=== PATIENT | male | born 1975 | race Caucasian/White ===

== ENCOUNTER 2019-07-21 11:48 | Outpatient (NON) | payer OTHER, SELFPAY ==
[2019-07-23 08:03] LABS: SARS-CoV-2 RNA PCR Positive
== END 2019-07-21 11:49 ==
PROVIDERS: PCP Internal Medicine; Visit Provider Nurse Practitioner
DX: R50.9 Fever, unspecified (principal); U07.1 COVID-19
CPT/HCPCS: 87635; C9803; U0003

== ENCOUNTER 2020-02-19 09:47 | Outpatient (CLI) | payer OTHER, SELFPAY ==
[2020-02-19 10:08] LABS: Basophils Absolute Auto 0.1 K/mm3 (0.0-0.1); Basophils Percent Auto 0.7 % (0.2-1.2); Eosinophils Absolute Auto 0.1 K/mm3 (0-0.3); Eosinophils Percent Auto 1.5 % (0-4.4); Hematocrit 47.1 % (42.0-52.0); Hemoglobin 15.7 g/dL (14.0-18.0); Immature Granulocyte Absolute 0.02 K/mm3 (0.00-0.031); Immature Granulocyte Percent A 0.3 % (0-0.5); Lymphocytes Absolute Auto 2.07 K/mm3 (0.9-3.2); Lymphocytes Percent Auto 28.3 % (18.3-44.2); Mean Corpuscular HGB Conc 33.3 g/dl (32-36); Mean Corpuscular Hemoglobin 30.7 pg (26-34); Mean Corpuscular Volume 92.2 fl (80-100); Mean Platelet Volume 10.2 fl (7.4-10.4); Monocytes Absolute Auto 0.5 K/mm3 (0.1-0.6); Monocytes Percent Auto 6.2 % (2.6-8.5); Neutrophils Absolute Auto 4.6 K/mm3 (1.3-6.7); Platelet Count Result 180 k/mm3 (150-375); Red Blood Count 5.11 M/mm3 (4.6-6.20); Red Cell Distribution Width 12.3 % (11.5-14.5); White Blood Count 7.3 K/mm3 (4.5-10.0)
[2020-02-19 10:28] LABS: Alanine Aminotransferase 21 U/L (4-50); Albumin Level 3.9 g/dL (3.5-5.1); Alkaline Phosphatase 29 U/L (38-126); Anion Gap 7 mmol/L (8-16); Aspartate Amino Transferase 21 U/L (17-59); Bilirubin,Total 0.4 mg/dL (0.2-1.3); Blood Urea Nitrogen 19 mg/dL (9-20); Calcium 8.9 mg/dL (8.4-10.2); Carbon Dioxide 27 mmol/L (22-30); Chloride 106 mmol/L (98-107); Cholesterol 151 mg/dL (0-200); Estimated Glomerular Filt Rate > 60; Glucose 92 mg/dL (75-110); HDL Direct 30 mg/dL; Potassium 4.2 mmol/L (3.4-5.0); Sodium 140 mmol/L (137-145); Triglycerides 110 mg/dL (<150)
[2020-02-19 10:40] LABS: LDL Cholesterol Direct 98 mg/dL
== END 2020-02-19 09:48 | disposition home or self-care (01) ==
PROVIDERS: PCP Internal Medicine; Visit Provider Clinical Nurse Specialist
DX: Z13.220 Encounter for screening for lipoid disorders (principal); Z13.228 Encounter for screening for other metabolic disorders; Z51.81 Encounter for therapeutic drug level monitoring; Z79.899 Other long term (current) drug therapy
CPT/HCPCS: 36415; 80053; 80061; 85025

== ENCOUNTER → 2020-02-29 08:12 | Outpatient (CLI) | payer OTHER, SELFPAY ==
--- NOTE | ~2020-02-29 | US_ITS ---
US abdomen complete DATE: 02/29/2020 09:10 INDICATION: Right upper quadrant and right lower quadrant abdominal pain TECHNIQUE: Real-time imaging and Doppler analysis of the abdomen COMPARISON: None FINDINGS: No hepatic or pancreatic space-occupying mass lesion is evident. Normal hepatopedal portal venous flow direction. No gallstones, gallbladder wall thickening or bile duct dilatation. No renal mass lesion or hydronephrosis. The spleen is within normal limits of size. Normal caliber of the abdominal aorta. The inferior vena cava is patent. IMPRESSION: No significant abnormality Reviewed, dictated and finalized at [facility]. Reviewed, dictated and finalized at [facility]. E MECHANIC IMPRESSION: No significant abnormality
== END ==
PROVIDERS: Visit Provider Clinical Nurse Specialist
DX: R10.9 Unspecified abdominal pain (principal)
CPT/HCPCS: 76700

== ENCOUNTER 2020-10-12 15:50 | Outpatient (CLI) | payer OTHER, SELFPAY ==
[2020-10-12 16:53] LABS: CRP 0.7 mg/dL (<1.0)
[2020-10-12 17:14] LABS: Erythrocyte Sedimentation Rate 8 mm/hr (0-20)
[2020-10-18 14:14] LABS: Tissue Transglutaminase IgG Ab 2 U/mL (<6)
[2020-10-18 21:22] LABS: Tissue Transglutaminase IgA Ab 3 U/mL (<4)
== END 2020-10-12 15:51 | disposition home or self-care (01) ==
LOC: ANHLAB 15:52
PROVIDERS: PCP Internal Medicine; Visit Provider Internal Medicine Gastroenterology
DX: R10.9 Unspecified abdominal pain (principal); R19.4 Change in bowel habit
CPT/HCPCS: 36415; 83516; 85652; 86140

== ENCOUNTER 2021-03-31 09:27 | Outpatient (CLI) | payer OTHER, SELFPAY ==
[2021-03-31 09:46] LABS: Basophils Percent Auto 0.6 % (0.2-1.2); Eosinophils Absolute Auto 0.1 K/mm3 (0-0.3); Eosinophils Percent Auto 1.6 % (0-4.4); Hematocrit 47.3 % (42.0-52.0); Hemoglobin 15.5 g/dL (14.0-18.0); Immature Granulocyte Absolute 0.03 K/mm3 (0.00-0.031); Immature Granulocyte Percent A 0.4 % (0-0.5); Lymphocytes Absolute Auto 2.11 K/mm3 (0.9-3.2); Lymphocytes Percent Auto 30.8 % (18.3-44.2); Mean Corpuscular HGB Conc 32.8 g/dl (32-36); Mean Corpuscular Volume 94.6 fl (80-100); Mean Platelet Volume 9.9 fl (7.4-10.4); Monocytes Absolute Auto 0.6 K/mm3 (0.1-0.6); Monocytes Percent Auto 9.2 % (2.6-8.5); Neutrophils Absolute Auto 3.9 K/mm3 (1.3-6.7); Neutrophils Percent Auto 57.4 % (45.5-73.1); Platelet Count Result 169 k/mm3 (150-375); Red Cell Distribution Width 12.3 % (11.5-14.5); White Blood Count 6.9 K/mm3 (4.5-10.0)
[2021-03-31 09:59] LABS: Alanine Aminotransferase 30 U/L (4-50); Albumin Level 4.2 g/dL (3.5-5.1); Alkaline Phosphatase 30 U/L (38-126); Anion Gap 6 mmol/L (8-16); Aspartate Amino Transferase 22 U/L (17-59); Bilirubin,Total 0.7 mg/dL (0.2-1.3); Blood Urea Nitrogen 15 mg/dL (9-20); Calcium 9.3 mg/dL (8.4-10.2); Carbon Dioxide 29 mmol/L (22-30); Chloride 103 mmol/L (98-107); Cholesterol 166 mg/dL (0-200); Estimated Glomerular Filt Rate > 60; Glucose 105 mg/dL (65-110); HDL Direct 34 mg/dL; Potassium 4.6 mmol/L (3.4-5.0); Sodium 138 mmol/L (137-145); Triglycerides 92 mg/dL (<150)
[2021-03-31 10:09] LABS: LDL Cholesterol Direct 113 mg/dL
== END 2021-03-31 09:28 | disposition home or self-care (01) ==
LOC: ANHLAB 09:34
PROVIDERS: PCP Internal Medicine; Visit Provider Nurse Practitioner
DX: Z13.220 Encounter for screening for lipoid disorders (principal); I10 Essential (primary) hypertension
CPT/HCPCS: 36415; 80053; 80061; 85025

== ENCOUNTER 2021-04-02 00:40 | Day surgery (SDC) | payer OTHER, SELFPAY ==
[2021-03-14 12:58] VITALS: BMI 41.8
--- NOTE | 2021-04-02 08:28 | WPDANESEPPF ---
Anes - Initial Pre Proc Eval Procedure: Operation Date: 04/02/21 10:30 Proposed Procedures p Screening Colonoscopy - Benji Weeks MD Date/Time: 04/02/21 08:28 Surgeon: Benji Weeks MD Pre Op Diagnosis: neoplasm screening Patient Data Age: 46 Gender: M Height: 1.8 m Weight: 136 kg Allergies Allergy/AdvReac Type Severity Reaction Status Date / Time No Known Allergies Allergy Verified 04/02/21 09:42 Home Medications Medication Instructions Recorded Confirmed Type losartan 50 mg tablet 50 mg PO DAILY #90 tablet 10/03/20 04/02/21 Rx Patient hx anesthesia problems: none Family hx anesthesia problems: none Results Review: All pre-operative results and documents have been reviewed as part of the pre-operative evaluation. [facility] Past Medical History Medical History (Updated 03/30/21 @ 12:17 by Silverio Salter DO) Colon cancer screening Essential (primary) hypertension Obesity, morbid, BMI 40.0-49.9 Family History Family History Mother Family history of obesity Asthma Family history of diabetes mellitus in first degree relative Father Patient's father is in good health Family history of cardiac disorder Sibling Patient's sister is in good health Patient's brother is in good health Grandparent Family history of lung cancer Other Family history of cardiovascular disease Social History Social History (Updated 10/12/20 @ 15:31 by Mary Blackwell CMA) Smoking status: Never smoker Alcohol intake: current Alcohol use details: seldom Substance use: never Living arrangements: with family Spiritual care concerns: No Anes - Eval Final PreProcedure Day of Procedure 04/02/21 08:28 Patient weight: morbidly obese Heart: regular rate and rhythm Lungs: clear to auscultation and normal air movement Airway: Mallampati scale class II Neurological: alert and oriented Last oral intake: >/= 8 hours ASA classification: III Emergent: no Anesthetic plan: proceed Anesthesia type and monitoring: general GIVS and standard monitoring Results Review: All pre-operative results and documents have been reviewed as part of the pre-operative evaluation. Informed Consent: The patient's anesthetic plan and its attendant risks and benefits were discussed with the patient/family/POA. Questions were solicited and answers provided to the satisfaction of the patient/family/POA.
--- NOTE | 2021-04-02 09:42 | PM.HPGS ---
History of Present Illness History of Present Illness Consent: Risks, benefits, and alternatives have been discussed and questions answered. Patient agrees to proceed with procedure. Chief complaint: neoplasm screening Narrative: Ross Khan is a 46 year old male here for first colonoscopy, had frequent stools with abdominal discomfort Review of Systems Constitutional: Constitutional: Denies headache(s) and Denies weakness Eyes: Eyes: Denies blurry vision ENT: Reports Normal hearing present, Denies headache(s) and Denies neck pain Cardiovascular: Cardiovascular: Denies chest pain and Denies dyspnea Respiratory: Respiratory: Denies dyspnea Gastrointestinal: Gastrointestinal: Reports no additional gastrointestinal complaints Genitourinary: Genitourinary: Denies dysuria Musculoskeletal: Musculoskeletal: Denies neck pain Integumentary/Breasts: Skin/Breast: Denies dry skin Neurologic: Reports Normal hearing present, Denies headache(s) and Denies weakness Psychiatric: Psychiatric: Denies anxiety Endocrine: Endocrine: Denies change in body appearance Hematologic/Lymphatic: Hematologic/Lymphatic: Denies easy bleeding Allergic/Immunologic: Allergic/Immunologic: Denies urticaria PMFSH Past Medical History Medical History (Updated 03/30/21 @ 12:17 by Silverio Satler DO) Colon cancer screening Essential (primary) hypertension Obesity, morbid, BMI 40.0-49.9 Family History Family History Mother Family history of obesity Asthma Family history of diabetes mellitus in first degree relative Father Patient's father is in good health Family history of cardiac disorder Sibling Patient's sister is in good health Patient's brother is in good health Grandparent Family history of lung cancer Other Family history of cardiovascular disease Social History Social History (Updated 10/12/20 @ 15:31 by Mary Blackwell CMA) Smoking status: Never smoker Alcohol intake: current Alcohol use details: seldom Substance use: never Living arrangements: with family Spiritual care concerns: No Meds Home Medications and Allergies Home Medications Medication Instructions Recorded Confirmed Type losartan 50 mg tablet 50 mg PO DAILY #90 tablet 10/03/20 04/02/21 Rx Allergies Allergy/AdvReac Type Severity Reaction Status Date / Time No Known Allergies Allergy Verified 04/02/21 09:42 Exam Const: General: comfortable and no acute distress HENMT: General nose exam: Normal nares present Eyes: General: appearance normal, both eyes and all related structures Neck: Neck: no JVD Resp: Auscultation: clear to auscultation bilaterally Cardio: Rate: regular rate Rhythm: regular rhythm GI: Inspection: non-distended GI Palp: Yes Soft to palpation Skin: General skin exam: normal color Neuro: General: gait normal Speech: normal speech Extrem: General: normal to inspection Psych: Mental Status: mental status grossly normal Assessment and Plan Assessment and plan (1) Colon cancer screening: Code(s): Z12.11 - Encounter for screening for malignant neoplasm of colon Status: Acute (2) Frequent bowel movements: Code(s): R19.4 - Change in bowel habit Status: Acute Assessment and Plan: colonoscopy, consider random colon bx
[2021-04-02 09:43] VITALS: BP 147/92; PULSE 90; RESP 18; TEMP 35.9; O2SAT 97; BMI 41.8
[2021-04-02] MEDS: LACTATED RINGERS 1,000 ML 150 ML IV CONT (09:55)
[2021-04-02 10:19] VITALS: BP 98/66; PULSE 80; RESP 12; O2SAT 96
[2021-04-02 10:29] VITALS: BP 127/78; PULSE 77; RESP 21; O2SAT 97
[2021-04-02 10:39] VITALS: BP 108/54; PULSE 76; RESP 27; O2SAT 98
== END 2021-04-02 10:49 | disposition home or self-care (01) ==
PROVIDERS: PCP Internal Medicine; Visit Provider Internal Medicine Gastroenterology
PROC: 0DJD8ZZ Inspection of Lower Intestinal Tract, Via Natural or Artificial Opening Endoscopic (ICD-10-PCS; CPT 45378; principal; 2021-04-02 10:30)
DX: Z12.11 Encounter for screening for malignant neoplasm of colon (principal); D12.3 Benign neoplasm of transverse colon; K63.5 Polyp of colon; R19.7 Diarrhea, unspecified; K57.30 Diverticulosis of large intestine without perforation or abscess without bleeding; K52.89 Other specified noninfective gastroenteritis and colitis; I10 Essential (primary) hypertension; E66.01 Morbid (severe) obesity due to excess calories; Z68.41 Body mass index [BMI] 40.0-44.9, adult
CPT/HCPCS: 45385; 45380; 88305; J2704; J7120

== ENCOUNTER 2022-06-15 08:17 | Outpatient (CLI) | payer OTHER, SELFPAY ==
[2022-06-15 08:38] LABS: Basophils Absolute Auto 0.1 K/mm3 (0.0-0.1); Basophils Percent Auto 0.9 % (0.2-1.2); Eosinophils Absolute Auto 0.2 K/mm3 (0-0.3); Eosinophils Percent Auto 3.2 % (0-4.4); Hematocrit 46.1 % (42.0-52.0); Hemoglobin 15.2 g/dL (14.0-18.0); Immature Granulocyte Absolute 0.02 K/mm3 (0.00-0.031); Immature Granulocyte Percent A 0.4 % (0-0.5); Lymphocytes Absolute Auto 1.57 K/mm3 (0.9-3.2); Lymphocytes Percent Auto 27.6 % (18.3-44.2); Mean Corpuscular Hemoglobin 31.6 pg (26-34); Mean Corpuscular Volume 95.8 fl (80-100); Mean Platelet Volume 9.8 fl (7.4-10.4); Monocytes Absolute Auto 0.5 K/mm3 (0.1-0.6); Monocytes Percent Auto 9.5 % (2.6-8.5); Neutrophils Absolute Auto 3.3 K/mm3 (1.3-6.7); Neutrophils Percent Auto 58.4 % (45.5-73.1); Platelet Count Result 149 k/mm3 (150-375); Red Blood Count 4.81 M/mm3 (4.6-6.20); Red Cell Distribution Width 12.8 % (11.5-14.5); White Blood Count 5.7 K/mm3 (4.5-10.0)
[2022-06-15 08:47] LABS: Alanine Aminotransferase 29 U/L (6-50); Albumin Level 3.5 g/dL (3.5-5.1); Alkaline Phosphatase 23 U/L (38-126); Anion Gap 2 mmol/L (8-16); Aspartate Amino Transferase 22 U/L (17-59); Bilirubin,Total 0.4 mg/dL (0.2-1.3); Blood Urea Nitrogen 14 mg/dL (9-20); Calcium 8.1 mg/dL (8.4-10.2); Carbon Dioxide 30 mmol/L (22-30); Chloride 106 mmol/L (98-107); Cholesterol 121 mg/dL (0-200); Estimated Glomerular Filt Rate > 60; Glucose 99 mg/dL (65-110); HDL Direct 29 mg/dL; Potassium 4.2 mmol/L (3.4-5.0); Sodium 138 mmol/L (137-145); Triglycerides 81 mg/dL (<150)
[2022-06-15 08:58] LABS: LDL Cholesterol Direct 73 mg/dL
== END 2022-06-15 08:18 | disposition home or self-care (01) ==
LOC: ANHLAB 08:18
PROVIDERS: PCP Internal Medicine; Visit Provider Nurse Practitioner
DX: Z13.29 Encounter for screening for other suspected endocrine disorder (principal); Z13.220 Encounter for screening for lipoid disorders
CPT/HCPCS: 36415; 80053; 80061; 85025

== ENCOUNTER 2023-10-17 08:26 | Outpatient (CLI) | payer OTHER, SELFPAY ==
[2023-10-17 09:07] LABS: Basophils Percent Auto 0.6 % (0.2-1.2); Eosinophils Absolute Auto 0.1 K/mm3 (0-0.3); Eosinophils Percent Auto 1.8 % (0-4.4); Hematocrit 47.2 % (42.0-52.0); Hemoglobin 15.9 g/dL (14.0-18.0); Immature Granulocyte Absolute 0.02 K/mm3 (0.00-0.031); Immature Granulocyte Percent A 0.3 % (0-0.5); Lymphocytes Absolute Auto 1.72 K/mm3 (0.9-3.2); Mean Corpuscular HGB Conc 33.7 g/dl (32-36); Mean Corpuscular Hemoglobin 31.8 pg (26-34); Mean Corpuscular Volume 94.4 fl (80-100); Mean Platelet Volume 10.3 fl (7.4-10.4); Monocytes Absolute Auto 0.5 K/mm3 (0.1-0.6); Monocytes Percent Auto 7.7 % (2.6-8.5); Neutrophils Absolute Auto 4.2 K/mm3 (1.3-6.7); Neutrophils Percent Auto 63.6 % (45.5-73.1); Platelet Count Result 180 k/mm3 (150-375); Red Cell Distribution Width 12.6 % (11.5-14.5); White Blood Count 6.6 K/mm3 (4.5-10.0)
[2023-10-17 09:13] LABS: Alanine Aminotransferase 30 U/L (6-50); Albumin Level 4.4 g/dL (3.5-5.1); Alkaline Phosphatase 29 U/L (38-126); Anion Gap 9 mmol/L (4-12); Aspartate Amino Transferase 21 U/L (17-59); Bilirubin,Total 0.6 mg/dL (0.2-1.3); Blood Urea Nitrogen 19 mg/dL (9-20); Carbon Dioxide 26 mmol/L (22-30); Chloride 103 mmol/L (98-107); Cholesterol 151 mg/dL (0-200); Estimated Glomerular Filt Rate > 60; Glucose 93 mg/dL (65-110); HDL Direct 32 mg/dL; Potassium 4.2 mmol/L (3.4-5.0); Sodium 138 mmol/L (137-145); Triglycerides 115 mg/dL (<150)
[2023-10-17 09:24] LABS: LDL Cholesterol Direct 93 mg/dL
[2023-10-17 09:43] LABS: Prostate Specific Antigen 0.7 ng/mL (< OR = 4.0)
== END 2023-10-17 08:27 | disposition home or self-care (01) ==
LOC: ANHLAB 08:27
PROVIDERS: PCP Internal Medicine; Visit Provider Nurse Practitioner
DX: Z12.5 Encounter for screening for malignant neoplasm of prostate (principal); Z13.220 Encounter for screening for lipoid disorders; Z13.29 Encounter for screening for other suspected endocrine disorder
CPT/HCPCS: 36415; 80053; 80061; 84153; 85025; G0103

== ENCOUNTER 2024-07-22 14:42 | Outpatient (CLI) | payer OTHER, SELFPAY ==
[2024-07-22 18:14] LABS: Alanine Aminotransferase 23 U/L (6-50); Aspartate Amino Transferase 30 U/L (17-59)
== END 2024-07-22 14:43 | disposition home or self-care (01) ==
LOC: ANHLAB 14:44
PROVIDERS: PCP Internal Medicine; Visit Provider Podiatrist Foot & Ankle Surgery
DX: B35.1 Tinea unguium (principal)
CPT/HCPCS: 36415; 84450; 84460

== ENCOUNTER 2024-08-13 01:10 | Day surgery (SDC) | payer OTHER, SELFPAY ==
[2024-08-05 11:13] VITALS: BMI 43.9
--- OUTSIDE RECORDS SUMMARY | 2024-08-13 01:13 | XMS_ITS | Continuity of Care Document ---
Author Organization [facility] Address [address] [place] [address] Phone Care Team Providers Care Lab Technologist Name Role Phone Mode Pack MD Unavailable Unavailable Allergies, Adverse Reactions, Alerts Substance Reaction Status Criticality No Known Allergies Active No Inform ation Medications Medication Instructions Dosage Effective Dates (start - stop) Status Comments epinephrine 0.3 mg/0.3 mL injection, auto-injector inject 0.3 milliliter by intramuscular route once as needed for anaphylaxis 0.3 MG - Active will with 2-kishor fexofenadine 180 mg tablet take 2 tablet by oral route every morning 360 MG - Active diphenhydramine 25 mg tablet take 1 - 2 Tablet by oral route every 4 - 6 hours as needed as needed 25 MG - Active losartan 50 mg tablet take 1 tablet by oral route every day 50 MG - Active prednisone 10 mg tablet take 4 tablet (10MG) by oral route every day - No Longer Active cetirizine 10 mg tablet take 2 tablet by oral route every evening 20 MG - No Longer Active Advance Directives Directive Yes / No Effective Date File Name No Information Encounters Encounter Description Practice Location Reason(s) For Visit Diagnoses Date Provider Providers Copied on Encounter [facility], [address], [place], [place], [id number], [place] tel:[phone] [facility] No Information Ramone Coello. [address], [id number], [place]. tel:[phone] [facility], [address], [place], [place], [address], tel:[phone] [facility] No Information Ramone Coello. [address], [id number], . tel:[phone] [facility], [address], [place], [place], [address], tel:[phone] [facility] No Information Ramone Coello. [address], [id number], . tel:[phone] [facility], [address], [place], [place], [address], tel:[phone] [facility] Angioedema, initial encounter Ramone Coello. [address], [id number], . tel:[phone] Referring Provider: Dagoberto Cuellar, [facility] [address], [place], [address]. tel:[phone] Family History Family Member Type Diagnosis Age At Onset Problem (finding) No family hist ory of Hereditary angioedema Problem (finding) No family history of Hi ves Payers Payer name Insurance type Covered libertarian ID Authormaynora tilizette(s) [facility] CI [id number] Social History Type Description Quantity Date Captured Comments Alcohol Use Details Unknown Caffeine Use Details Unknown Tobacco Use Status No Information Smoking Status No Information Sex Male Chief Complaint And Reason For Visit No Information Reason For Referral Reason For Referral No Information History Of Present Illness Encounter Date Complaint History Of Prese nt Illness No Information Functional Status Date Functional Assessmen t No Information Instructions Date Instruction Additional Infor mation No Information Assessments Type Assessment Date No Information Patient Care Teams Name Effective Dates (start - stop) Status Members No Information
--- OUTSIDE RECORDS SUMMARY | 2024-08-13 01:13 | XMS_ITS | Continuity of Care Document ---
Author Organization [facility] Address [address] [facility] [address] [place] [address] Phone Care Team Providers Care Dye Stand Loader Name Role Phone Richard Jackson Unavailable Unavailable Procedures Procedure Date PT RE-EVALUATION THERAPEUTIC EXERCISES NEUROMUSCULAR RE-ED FUNC ACTIVITY HOT/COLD PACK ELECTRIC STIMULATION UNATT THERAPEUTIC EXERCISES NEUROMUSCULAR RE-ED MANUAL THERAPY FUNC ACTIVITY HOT/COLD PACK ELECTRIC STIMULATION UNATT PT EVALUATION THERAPEUTIC EXERCISES NEUROMUSCULAR RE-ED MANUAL THERAPY FUNC ACTIVITY HOT/COLD PACK ELECTRIC STIMULATION UNATT Advance Directives Directive Yes / No Effective Date File Name No Information Encounters Encounter Description Practice Location Reason(s) For Visit Diagnoses Date Provider Providers Copied on Encounter [facility], [id number], tel:[phone] [place] No Information Jan-0 5 Apple Jackson [address] [facility], [facility] [address], [place], [place], [facility], [place]. tel: [phone] [facility], [address] [address], [place], [place], [id number], tel:[phone] [place] No Information Nov-0 5 Apple Ramos. [address] [facility], [address], [place], [address], [place]. tel: [phone] [facility], [address] [facility] [address], [place], [place], [id number], [place] tel:[phone] [place] Pain in left kneeMuscle wasting and atrophy, NEC, left thighSprain of medial collateral ligament of left knee, subs Nov-0 201 5 Apple Ramos. [address] [facility], [address], [place], [address], [place]. tel: [phone] Family History Family Member Type Diagnosis Age At Onset No Information Payers Payer name Insurance type Covered constitution party ID Authormaynora christy(s) [employer] SP [id number] Social History Type Description Quantity Date Captured Comments Sex Male Smoking Status No Information Chief Complaint And Reason For Visit No [...]
--- OUTSIDE RECORDS SUMMARY | 2024-08-13 01:13 | XMS_ITS | Continuity of Care Document ---
Author Organization [facility] Address [address] [place] [address] Phone Care Team Providers Care Produce Assistant Name Role Phone Judd Ramirez MD Unavailable Unavailable Allergies, Adverse Reactions, Alerts Substance Reaction Status Criticality No Known Allergies Active No Inform ation Medications Medication Instructions Dosage Effective Dates (start - stop) Status Comments meloxicam 15 mg tablet TAKE 1 TABLET(15 MG) BY MOUTH EVERY DAY WITH FOOD - Active Tylenol-Codeine #3 300 mg-30 mg tablet take 1-2 tablets by oral route every 8 hours as needed for pain - Active glucosamine-chondr oitin 167 mg-133 mg capsule - Active LISINOPRIL (unknown strength) Not Available - Active Procedures Procedure Date RADEX KNE COMPL 4/MORE VIEWS OFFICE/OUTPATIENT VISIT EST RADEX KNE COMPL 4/MORE VIEWS OFFICE/OUTPATIENT VISIT EST OFFICE/OUTPATIENT VISIT EST RADEX KNE COMPL 4/MORE VIEWS OFFICE/OUTPATIENT VISIT EST OFFICE/OUTPATIENT VISIT EST OFFICE/OUTPATIENT VISIT EST OFFICE/OUTPATIENT VISIT EST MRI ANY JT LXTR C-MATRL OFFICE CONSULTATION RADEX KNE COMPL 4/MORE VIEWS RADEX KNE COMPL 4/MORE VIEWS OFFICE/OUTPATIENT VISIT EST RADEX KNE COMPL 4/MORE VIEWS POSTOP FOLLOW-UP VISIT POSTOP FOLLOW-UP VISIT POSTOP FOLLOW-UP VISIT OFFICE/OUTPATIENT VISIT EST OFFICE/OUTPATIENT VISIT EST JANICE LEON COMPL 4/MORE VIEWS OFFICE/OUTPATIENT VISIT NEW Advance Directives Directive Yes / No Effective Date File Name No Information Encounters Encounter Description Practice Location Reason(s) For Visit Diagnoses Date Provider Providers Copied on Encounter OFFICE/OUTPAT IENT VISIT EST [facility], [address], [address], tel:[phone] [facility] Post-traumati c osteoarthriti s of left knee 3-201 8 Dusek Judd. [address] [place], [place], [address]. tel:[phone] [facility], [address], [address], tel:[phone] [facility] No Information 0 8 Dusek Judd. [address] [place], [place], [address]. tel:[phone] OFFICE/OUTPAT IENT VISIT EST [facility], [address], [address], [place] tel:[phone] [facility] Body mass index (BMI) 39.0-39.9, adultPost-tra umatic osteoarthriti s of left knee Oct- 3201 7 Dusek Judd. [address] [place], [place], [address]. tel:[phone] OFFICE/OUTPAT IENT VISIT EST [facility], [address], [address], [place] tel:[phone] [facility] Post-traumati c osteoarthriti s of left kneeBody mass index (BMI) 39.0-39.9, adult Jun-2 0-201 7 Dusek Judd. [address] [place], [place], [address]. tel:[phone] OFFICE/OUTPAT IENT VISIT EST [facility], [address], [address], [place] tel:[phone] [facility] Post-traumati c osteoarthriti s of left knee 7 Dusek Judd. [address] [facility] [address] , [place], [place], [id number]. tel:[phone] OFFICE/OUTPAT IENT VISIT EST [facility], [address] [address], [place], [address], [place] tel:[phone] [facility] Post-traumati c osteoarthriti s of left knee 6 Dusek Judd. [address] [facility], [place], [place], [address]. tel:[phone] OFFICE/OUTPAT IENT VISIT EST [facility], [address], [address], [place] tel:[phone] [facility] Post-traumati c osteoarthriti s of left knee 6 Dusek Judd. [address] [facility], [place], [place], [id number]. tel:[phone] OFFICE/OUTPAT IENT VISIT EST [facility], [address] [address], [place], [address], [place] tel:[phone] [facility] Tear of medial meniscus of right knee, initial encounter 6 James Judd. [address] [facility] , [place], [place], [id number]. tel:[phone] [facility], [address], [address], [place] tel:[phone] [facility] No Information Nov-2 0- 6 No Information Referring Provider: Judd Ramirez, [address] [facility] [address] , [place], [address]. tel:[phone] OFFICE CONSULTATION [facility], [address], [address], [place] tel:[phone] [facility] Right knee pain (chief complaint) Right knee pain Sep-1 9-201 6 Moralez Pari. [address] [facility] [address], [place], [place], [id number]. tel:[phone] Referring Provider: Dagoberto Becerril, [address] [facility] [address], [place], [address]. tel:[phone] [facility], [address] [address], [place], [address], [place] tel:[phone] [facility] Post-traumati c osteoarthriti s of left knee Sep-1 4-201 6 Dusek Judd. [address] [facility], [place], [place], [address]. tel:[phone] [facility], [address] [address], [place], [address], [place] tel:[phone] [facility] Post-traumati c osteoarthriti s of left kneePain in left knee Sep-0 6-201 6 Dusek Judd. [address] [facility], [place], [place], [address]. tel:[phone] OFFICE/OUTPAT IENT VISIT EST [facility], [address] [address], [place], [address], [place] tel:[phone] [facility] Pain in left kneePost-trau matic osteoarthriti s of left knee Aug-3 0-201 6 Dusek Judd. [address] [facility], [place], [place], [address]. tel:[phone] Referring Provider: Dagoberto Becerril, [address] [facility], [place], [address]. tel:[phone] [facility], [address] [address], [place], [address], [place] tel:[phone] [facility] Medial meniscus tear, left, subsequent encounterPrim opal osteoarthriti s of left knee May-0 9-201 6 Dusek Judd. [address] [place], [place], [address]. tel:[phone] [facility], [address] [facility], [place], [address], [place] tel:[phone] [facility] Medial meniscus tear, left, subsequent encounter 6 Dusek Judd. [address], [place], [place], [address]. tel:[phone] [facility], [address] [address], [place], [address], [place] tel:[phone] [facility] Medial meniscus tear, left, subsequent encounter 6 Dusek Judd. [address], [place], [place], [address]. tel:[phone] [facility], [address] [address], [place], [address], [place] tel:[phone] [facility] Medial meniscus tear, left, subsequent encounter 6 Kirt Yañez. [address] [address], [place], [place], [address]. tel:[phone] OFFICE/OUTPAT IENT VISIT EST [facility], [address] [address], [place], [address], [place] tel:[phone] [facility] Sprain of medial collateral ligament of left knee, subsequent encounter 0 - 5 Dusek Judd. [address] [address] , [place], [place], [address]. [phone] OFFICE/OUTPAT IENT VISIT EST [facility], [address] [address], [place], [address], [place] tel:[phone] [facility] Sprain of medial collateral ligament of left knee, subsequent encounter 3 0-201 5 Dusek Judd. [address] , [place], [place], [address]. tel:[phone] [facility], [address] [address], [place], [address], [place] tel:[phone] [facility] Sprain of medial collateral ligament of left knee, subsequent encounter 2201 5 Dusek Judd. [address] , [place], [place], [address]. tel:[phone] OFFICE/OUTPAT IENT VISIT NEW [facility], [address], [place], [address], [place] tel:[phone] [facility] Pain in joint involving lower leg Nov- 5-201 5 Dusek Judd. [address], [place], [place], [address]. tel:[phone] Family History Family Member Type Diagnosis Age At Onset Father Problem (finding) Heart disease Mother Problem (finding) Heart disease Payers Payer name Insurance type Covered democrat ID Authoriza tion(s) [facility] Choice/Choice Plus [id number] [id number] Social History Type Description Quantity Date Captured Comments Alcohol Use Details Unknown Caffeine Use Details Unknown Tobacco Use Status No Information Smoking Status No Information Sex Male Chief Complaint And Reason For Visit No Information Reason For Referral Reason For Referral No Information Plan Of Treatment Date Type Action Status Referral Ordered: MRI ANY JT LXTR C-MATRL RT knee Appointment date/timeframe: 12/12/2015 ordered Referral Ordered: RADEX KNE COMPL 4/MORE VIEWS RT ordered Referral Ordered: RADEX KNE COMPL 4/MORE VIEWS LT knee ordered Referral Ordered: INJECTION LT knee ordered Referral Ordered: RADEX KNE COMPL 4/MORE VIEWS LT ordered Referral Ordered: MRI ANY JT LXTR C-MATRL LT knee ordered Future Order: Lab Order BMP ([id number]), O rdered on: Ordered History Of Present Illness Encounter Date Complaint History Of Prese nt Illness Right knee pain Functional Status Date Functional Assessmen t No Information Instructions Date Instruction Additional Infor mation Take medication/NSAID as directe d. Related to Post-traumatic osteoarthritis of left knee Weight loss reduces stress on joints. Related to Post-traumatic osteoarthritis of left knee Take medication/NSAID as directe d. Related to Post-traumatic osteoarthritis of left knee Weight loss reduces stress on joints. Related to Post-traumatic osteoarthritis of left knee Weight loss reduces stress on joints. Related to Post-traumatic osteoarthritis of left knee Take medication/NSAID as directe d. Related to Post-traumatic osteoarthritis of left knee Giving encouragement to exercise Related to Body mass index (BMI) 39.0-39.9, adult Benefits of Glucosamine/Chondroi tin Related to Post-traumatic osteoarthritis of left knee Take medication/NSAID as directe d. Related to Post-traumatic osteoarthritis of left knee Take medication/NSAID as directe d. Related to Post-traumatic osteoarthritis of left knee Discussed treatment options Rela luiz to Tear of medial meniscus of right knee, initial encounter Call for increase in pain Relate d to Tear of medial meniscus of right knee, initial encounter Discussed surgical options Relat ed to Post-traumatic osteoarthritis of left knee Benefits of Glucosamine/Chondroi tin Related to Post-traumatic osteoarthritis of left knee Weight loss reduces stress on joints. Related to Post-traumatic osteoarthritis of left knee Call for increase in pain Relate d to Right knee pain Discussed treatment options Rela luiz to Right knee pain Discussed treatment options Rela luiz to Sprain of medial collateral ligament of left knee, subsequent encounter Assessments Type Assessment Date assessment Post-traumatic osteoarthritis of left knee Patient Care Teams Name Effective Dates (start - stop) Status Members No Information
[2024-08-13 06:44] VITALS: BP 142/98; PULSE 77; RESP 16; TEMP 36.5; O2SAT 97
[2024-08-13] MEDS: LACTATED RINGERS 1,000 ML 150 ML IV CONT (06:53)
--- NOTE | 2024-08-13 07:42 | P.PNAN_ITS ---
Anes - Initial Pre Proc Eval Procedure: Operation Date: 08/13/24 08:00 Proposed Procedures p Screening Colonoscopy - Benji Weeks MD Date/Time: 08/13/24 07:42 Surgeon: Benji Weeks MD Pre Op Diagnosis: Hx of polyps Patient Data Age: 49 Gender: M Height: 1.8 m Weight: 138.4 kg Last Vital Signs Temp 36.5 C 08/13/24 06:44 Pulse 77 08/13/24 06:44 Resp 16 08/13/24 06:44 BP 142/98 H 08/13/24 06:44 Pulse Ox 97 08/13/24 06:44 O2 Del Method Room Air 08/13/24 06:44 Allergies Allergy/AdvReac Type Severity Reaction Status Date / Time No Known Allergies Allergy Verified 08/13/24 06:42 Home Medications ?Medication ?Instructions ?Recorded ?Confirmed ?Type losartan 50 mg tablet 50 mg PO DAILY #90 tabs 08/01/23 08/13/24 Rx terbinafine HCl 250 mg tablet 250 mg PO DAILY 08/05/24 08/13/24 History Patient hx anesthesia problems: none Family hx anesthesia problems: none Results Review: All pre-operative results and documents have been reviewed as part of the pre- operative evaluation. [facility] Past Medical History Medical History Colon cancer screening Obesity, morbid, BMI 40.0-49.9 Essential (primary) hypertension Family History Family History Mother Family history of obesity Asthma Family history of diabetes mellitus in first degree relative Father Patient's father is in good health Family history of cardiac disorder Sibling Patient's sister is in good health Patient's brother is in good health Grandparent Family history of lung cancer Other Family history of cardiovascular disease Social History Social History Social History: caffeine-daily Smoking status: Never smoker Alcohol intake: current Drinks per week: 5 Alcohol use details: seldom Substance use: never Substance use type: does not use Lack of Transportation: No Lack of Food: Never True Current Housing: I Have Housing Concerned About Future Housing: No Difficulty Paying Gas/Electric Bills: No Difficulty Paying for Meds: No Currently Unemployed: No Education: Trade/Vocational Certificate Difficulty w/ Childcare or Family Care: No Living arrangements: with family Spiritual care concerns: No Anes - Eval Final PreProcedure Day of Procedure 08/13/24 07:42 Patient weight: morbidly obese Heart: regular rate and rhythm Lungs: clear to auscultation Airway: Mallampati scale class III Neurological: alert and oriented Last oral intake: >/= 8 hours ASA classification: III Emergent: no Anesthetic plan: proceed Anesthesia type and monitoring: general GIVS and standard monitoring Results Review: All pre-operative results and documents have been reviewed as part of the pre- operative evaluation. Informed Consent: The patient's anesthetic plan and its attendant risks and benefits were discussed with the patient/family/POA. Questions were solicited and answers provided to the satisfaction of the patient/family/POA.
--- NOTE | 2024-08-13 07:43 | PM.HPGS ---
History of Present Illness History of Present Illness Consent: Risks, benefits, and alternatives have been discussed and questions answered. Patient agrees to proceed with procedure. Chief complaint: Hx of polyps Narrative: Ross Khan is a 49 year old male with colon polyp in 2021 Review of Systems Review of Systems: All systems reviewed & are unremarkable except as noted in HPI and below PMFSH Past Medical History Medical History (Updated 08/13/24 @ 07:44 by Benji Weeks MD) Colon polyp Colon cancer screening Obesity, morbid, BMI 40.0-49.9 Essential (primary) hypertension Family History Family History Mother Family history of obesity Asthma Family history of diabetes mellitus in first degree relative Father Patient's father is in good health Family history of cardiac disorder Sibling Patient's sister is in good health Patient's brother is in good health Grandparent Family history of lung cancer Other Family history of cardiovascular disease Social History Social History Social History: caffeine-daily Smoking status: Never smoker Alcohol intake: current Drinks per week: 5 Alcohol use details: seldom Substance use: never Substance use type: does not use Lack of Transportation: No Lack of Food: Never True Current Housing: I Have Housing Concerned About Future Housing: No Difficulty Paying Gas/Electric Bills: No Difficulty Paying for Meds: No Currently Unemployed: No Education: Trade/Vocational Certificate Difficulty w/ Childcare or Family Care: No Living arrangements: with family Spiritual care concerns: No Meds Home Medications and Allergies Home Medications ?Medication ?Instructions ?Recorded ?Confirmed ?Type losartan 50 mg tablet 50 mg PO DAILY #90 tabs 08/01/23 08/13/24 Rx terbinafine HCl 250 mg tablet 250 mg PO DAILY 08/05/24 08/13/24 History Allergies Allergy/AdvReac Type Severity Reaction Status Date / Time No Known Allergies Allergy Verified 08/13/24 06:42 Vital Signs Vital Signs - 24 hr 08/13/24 06:44 Temperature 97.7 F Pulse Rate 77 Respiratory Rate 16 Blood Pressure 142/98 H Pulse Oximetry 97 Oxygen Delivery Room Air Exam Const: General: comfortable and no acute distress HENMT: Face/Nose/Sinus: Normal nares present Eyes: General: appearance normal, both eyes and all related structures Neck: Neck: no JVD Resp: Auscultation: clear to auscultation bilaterally Cardio: Rate: regular rate Rhythm: regular rhythm GI: Inspection: non-distended GI Palp: Yes Soft to palpation Skin: General skin exam: normal color Neuro: General: gait normal Speech: normal speech Extrem: General: normal to inspection Psych: Mental Status: mental status grossly normal Assessment and Plan Assessment and plan (1) Colon polyp: Code(s): K63.5 - Polyp of colon Status: Acute Assessment and Plan: colonoscopy
--- NOTE | 2024-08-13 07:48 | P.PNAN_ITS ---
Anes - Eval Final PreProcedure Day of Procedure 08/13/24 07:48 Patient weight: morbidly obese Heart: regular rate and rhythm Lungs: clear to auscultation Airway: Mallampati scale class II Neurological: alert and oriented Last oral intake: >/= 8 hours ASA classification: III Emergent: no Anesthetic plan: proceed Anesthesia type and monitoring: general GIVS and standard monitoring Other findings: exam per BK Results Review: All pre-operative results and documents have been reviewed as part of the pre- operative evaluation. Informed Consent: The patient's anesthetic plan and its attendant risks and benefits were discussed with the patient/family/POA. Questions were solicited and answers provided to the satisfaction of the patient/family/POA.
[2024-08-13 07:57] VITALS: BP 127/70; PULSE 81; RESP 22; O2SAT 97
[2024-08-13 08:07] VITALS: BP 123/65; PULSE 78; RESP 18; O2SAT 96
[2024-08-13 08:17] VITALS: BP 140/78; PULSE 82; RESP 18; O2SAT 98
== END 2024-08-13 08:24 | disposition home or self-care (01) ==
PROVIDERS: PCP Internal Medicine; Referring Provider Internal Medicine Gastroenterology; Visit Provider Internal Medicine Gastroenterology
PROC: 0DJD8ZZ Inspection of Lower Intestinal Tract, Via Natural or Artificial Opening Endoscopic (ICD-10-PCS; CPT 45378; principal; 2024-08-13 08:00)
DX: Z12.11 Encounter for screening for malignant neoplasm of colon (principal); K62.1 Rectal polyp; K64.8 Other hemorrhoids; K57.30 Diverticulosis of large intestine without perforation or abscess without bleeding; I10 Essential (primary) hypertension; E66.01 Morbid (severe) obesity due to excess calories; Z68.41 Body mass index [BMI] 40.0-44.9, adult; Z80.1 Family history of malignant neoplasm of trachea, bronchus and lung; Z82.49 Family history of ischemic heart disease and other diseases of the circulatory system
CPT/HCPCS: 45380; 88305; J2704; J7120

== ENCOUNTER 2024-09-04 08:28 | Outpatient (CLI) | payer OTHER, SELFPAY ==
--- OUTSIDE RECORDS SUMMARY | 2024-09-04 08:31 | XMS_ITS | Continuity of Care Document ---
Author Organization [employer] Address [address] [place] [address] Phone Care Team Providers Care Camp Dining Room Attendant Name Role Phone Mode Pack MD Unavailable [...] Diagnoses Date Provider Providers Copied on Encounter [employer], [address], [place], [place], [address], [place] tel:[phone] [facility] No Information Ramone Coello. [address], [id number], [place]. tel:[phone] [employer], [address], [place], [place], [address], tel:[phone] [facility] No Information Ramone Coello. [address], [id number], . tel:[phone] [employer], [address], [place], [place], [address], tel:[phone] [facility] No Information Ramone Coello. [address], [id number], . tel:[phone] [employer], [address], [place], [place], [address], tel:[phone] [facility] Angioedema, initial encounter Ramone Coello. [address], [id number], . tel:[phone] Referring Provider: Dagoberto Cuellar, [facility] [address], [place], [address]. tel:[phone] Family History Family Member Type Diagnosis Age At Onset Problem (finding) No family hist ory of Hereditary angioedema Problem (finding) No family history of Hi ves Payers Payer name Insurance type Covered democrat ID Authormaynora tilizette(s) [facility] CI [id number] Social History Type Description Quantity Date Captured [...]
--- OUTSIDE RECORDS SUMMARY | 2024-09-04 08:31 | XMS_ITS | Continuity of Care Document ---
Author Organization [facility] Address [address] [facility] [address] [place] [address] Phone Care Team Providers Care Weighbridge Operator Name Role Phone Richard Jackson Unavailable Unavailable [...] Diagnoses Date Provider Providers Copied on Encounter [facility], [id number], [phone] [place] No Information Jan-0 5 Apple Jackson [address] [facility], [facility] [address], [place], [facility], . tel: [phone] [facility], [address] [address], [place], [place], [address], tel:[phone] [place] No Information Nov-0 5 Apple Ramos. [address] [facility], [address], [place], [address], [place]. tel: [phone] [facility], [address] [facility] [address], [place], [place], [address], [place] tel:[phone] [place] Pain in left kneeMuscle wasting and atrophy, NEC, left thighSprain of medial collateral ligament of left knee, subs Nov-0 201 5 Apple Ramos. [address] [facility], [address], [place], [address], [place]. tel: [phone] Family History Family Member Type Diagnosis Age At Onset No Information Payers Payer name Insurance type Covered alliance party ID Authormaynora christy(s) [employer] SP [id number] Social History Type Description Quantity [...]
--- OUTSIDE RECORDS SUMMARY | 2024-09-04 08:31 | XMS_ITS | Continuity of Care Document ---
Author Organization [facility] Address [address] [address] [place] [address] Phone Care Team Providers Care Garnett Fixer Name Role Phone Judd Ramirez MD Unavailable [...] OFFICE/OUTPAT IENT VISIT EST [facility], [address], [address], tel:[phone] [facility] Post-traumati c osteoarthriti s of left knee 3-201 8 Dusek Judd. [address] [place], [place], [address]. tel:[phone] [facility], [address], [address], tel:[phone] [facility] No Information 0 8 Dusek Judd. [address] [place], [place], [id number]. tel:[phone] OFFICE/OUTPAT IENT VISIT EST [facility], [address], [address], [place] tel:[phone] [facility] Body mass index (BMI) 39.0-39.9, adultPost-tra umatic osteoarthriti s of left knee Oct- 3201 7 Dusek Judd. [address] [place], [place], [address]. tel:[phone] OFFICE/OUTPAT IENT VISIT EST [facility], [address], [address], [place] tel:[phone] [facility] Post-traumati c osteoarthriti s of left kneeBody mass index (BMI) 39.0-39.9, adult Jun-2 0-201 7 Dusek Judd. [address] [place], [place], [address]. tel:[phone] OFFICE/OUTPAT IENT VISIT EST [facility], [address], [address], [place] tel:[phone] [facility] Post-traumati c osteoarthriti s of left knee 7 Dusek Judd. [address] [facility] [address] , [place], [place], [id number]. tel:[phone] OFFICE/OUTPAT IENT VISIT EST [facility], [address] [address], [place], [address], [place] tel:[phone] [facility] Post-traumati c osteoarthriti s of left knee 6 Dusek Judd. [address] [facility], [place], [place], [address]. tel:[phone] OFFICE/OUTPAT IENT VISIT EST [facility], [address], [address], [place] tel:[phone] [facility] Post-traumati c osteoarthriti s of left knee 6 Dusek Judd. [address] [facility], [place], [place], [address]. tel:[phone] OFFICE/OUTPAT IENT VISIT EST [facility], [address] [address], [place], [address], [place] tel:[phone] [facility] Tear of medial meniscus of right knee, initial encounter 6 James Judd. [address] [facility] , [place], [place], [address]. tel:[phone] [facility], [address], [address], [place] tel:[phone] [facility] No Information Nov-2 0- 6 No Information Referring Provider: Judd Ramirez, [address] [facility] [address] , [place], [address]. tel:[phone] OFFICE CONSULTATION [facility], [address], [address], [place] tel:[phone] [facility] Right knee pain (chief complaint) Right knee pain Sep-1 9-201 6 Moralez Pari. [address] [facility] [address], [place], [place], [address]. tel:[phone] Referring Provider: Dagoberto Becerril, [address], [place], [address]. tel:[phone] [facility], [address] [address], [place], [address], [place] tel:[phone] [facility] Post-traumati c osteoarthriti s of left knee Sep-1 4-201 6 Dusek Judd. [address] [facility], [place], [place], [address]. tel:[phone] [facility], [address] [address], [place], [address], [place] tel:[phone] [facility] Post-traumati c osteoarthriti s of left kneePain in left knee Sep-0 6-201 6 Dusek Judd. [address] [facility], [place], [place], [address]. tel:[phone] OFFICE/OUTPAT IENT VISIT EST [facility], [address] [address], [place], [address], [place] tel:[phone] [facility] Pain in left kneePost-trau matic osteoarthriti s of left knee Aug-3 0-201 6 Dusek Judd. [address] [facility], [place], [place], [address]. tel:[phone] Referring Provider: Dagoberto Becerril, [address], [place], [address]. tel:[phone] [facility], [address] [address], [place], [address], [place] tel:[phone] [facility] Medial meniscus tear, left, subsequent encounterPrim opal osteoarthriti s of left knee May-0 9-201 6 Dusek Judd. [address] [place], [place], [address]. tel:[phone] [facility], [address] [facility], [place], [address], [place] tel:[phone] [facility] Medial meniscus tear, left, subsequent encounter 6 Dusek Judd. [address], [place], [place], [id number]. tel:[phone] [facility], [address] [address], [place], [address], [place] tel:[phone] [facility] Medial meniscus tear, left, subsequent encounter 6 Dusek Judd. [address], [place], [place], [address]. tel:[phone] [facility], [address] [address], [place], [address], [place] tel:[phone] [facility] Medial meniscus tear, left, subsequent encounter 6 Kirt Yañez. [address] [address], [place], [place], [address]. tel:[phone] OFFICE/OUTPAT IENT VISIT EST [facility], [address] [address], [place], [address], [place] tel:[phone] [facility] Sprain of medial collateral ligament of left knee, subsequent encounter 0 - 5 Dusek Judd. [address] [address] , [place], [place], [address]. [phone] OFFICE/OUTPAT IENT VISIT EST [facility], [address] [address], [place], [address], [place] tel:[phone] [facility] Sprain of medial collateral ligament of left knee, subsequent encounter 3 0-201 5 Dusek Judd. [address] , [place], [place], [address]. tel:[phone] [facility], [address] [address], [place], [address], [place] tel:[phone] [facility] Sprain of medial collateral ligament of left knee, subsequent encounter 2201 5 Dusek Judd. [address] , [place], [place], [address]. tel:[phone] OFFICE/OUTPAT IENT VISIT NEW [facility], [address], [place], [address], [place] tel:[phone] [facility] Pain in joint involving lower leg Nov-03 28-201 5 Dusek Judd. [address], [place], [place], [address]. tel:[phone] Family History Family Member Type Diagnosis Age At Onset Father Problem (finding) Heart disease Mother Problem (finding) Heart disease Payers Payer name Insurance type Covered libertarian ID Authoriza tilizette(s) [facility] Choice/Choice Plus E2 [id number] Social History Type Description Quantity Date Captured [...] knee ordered Future Order: Lab Order BMP ([id number]), O rdered on: Ordered History Of Present [...] to Body mass index (BMI) 39.0-39.9, adult Weight loss reduces stress on joints. Related to Post-traumatic osteoarthritis of left knee Take medication/NSAID as directe d. Related to Post-traumatic osteoarthritis of left knee Take medication/NSAID as directe d. Related to Post-traumatic osteoarthritis of left knee Benefits of Glucosamine/Chondroi tin Related to Post-traumatic osteoarthritis of left knee Take medication/NSAID as directe d. Related to Post-traumatic osteoarthritis of left knee Discussed surgical options Relat ed to Post-traumatic osteoarthritis of left knee Benefits of Glucosamine/Chondroi tin Related to Post-traumatic osteoarthritis of left knee Weight loss reduces stress on joints. Related to Post-traumatic osteoarthritis of left knee Call for increase in pain Relate d to Tear of medial meniscus of right knee, initial encounter Discussed treatment options Rela luiz to Tear [...]
[2024-09-04 09:13] LABS: Basophils Absolute Auto 0.1 K/mm3 (0.0-0.1); Basophils Percent Auto 0.8 % (0.2-1.2); Eosinophils Absolute Auto 0.1 K/mm3 (0-0.3); Eosinophils Percent Auto 1.7 % (0-4.4); Hematocrit 46.8 % (42.0-52.0); Hemoglobin 15.1 g/dL (14.0-18.0); Immature Granulocyte Absolute 0.07 K/mm3 (0.00-0.031); Immature Granulocyte Percent A 1.2 % (0-0.5); Lymphocytes Absolute Auto 1.58 K/mm3 (0.9-3.2); Lymphocytes Percent Auto 26.5 % (18.3-44.2); Mean Corpuscular HGB Conc 32.3 g/dl (32-36); Mean Corpuscular Hemoglobin 30.1 pg (26-34); Mean Corpuscular Volume 93.4 fl (80-100); Mean Platelet Volume 10.4 fl (7.4-10.4); Monocytes Absolute Auto 0.6 K/mm3 (0.1-0.6); Monocytes Percent Auto 9.2 % (2.6-8.5); Neutrophils Absolute Auto 3.6 K/mm3 (1.3-6.7); Neutrophils Percent Auto 60.6 % (45.5-73.1); Platelet Count Result 195 k/mm3 (150-375); Red Blood Count 5.01 M/mm3 (4.6-6.20); Red Cell Distribution Width 12.6 % (11.5-14.5)
[2024-09-04 09:27] LABS: Alanine Aminotransferase 25 U/L (6-50); Alkaline Phosphatase 28 U/L (38-126); Anion Gap 7 mmol/L (4-12); Aspartate Amino Transferase 25 U/L (17-59); Bilirubin,Total 0.4 mg/dL (0.2-1.3); Blood Urea Nitrogen 16 mg/dL (9-20); Carbon Dioxide 24 mmol/L (22-30); Chloride 106 mmol/L (98-107); Cholesterol 138 mg/dL (0-200); Estimated Glomerular Filt Rate > 60; Glucose 91 mg/dL (65-110); HDL Direct 32 mg/dL; Potassium 4.3 mmol/L (3.4-5.0); Sodium 137 mmol/L (137-145); Total Protein 7.2 g/dL (6.3-8.2); Triglycerides 71 mg/dL (<150)
[2024-09-04 09:38] LABS: LDL Cholesterol Direct 78 mg/dL
[2024-09-04 09:58] LABS: Prostate Specific Antigen 1.3 ng/mL (< OR = 4.0)
== END 2024-09-04 08:29 | disposition home or self-care (01) ==
LOC: ANHLAB 08:30
PROVIDERS: PCP Internal Medicine; Visit Provider Nurse Practitioner
DX: D69.6 Thrombocytopenia, unspecified (principal); Z13.220 Encounter for screening for lipoid disorders; Z12.5 Encounter for screening for malignant neoplasm of prostate; Z13.29 Encounter for screening for other suspected endocrine disorder
CPT/HCPCS: 36415; 80053; 80061; 84153; 85025; G0103

== ENCOUNTER 2024-10-28 13:53 | Outpatient (CLI) | payer OTHER, SELFPAY ==
--- OUTSIDE RECORDS SUMMARY | 2024-10-28 13:58 | XMS_ITS | Clinical Summary ---
Author Organization [facility] Address [address] [place] [address] Care Team Providers Care Events Associate Name Role Phone Stew Matt MD Primary Care Provider Unavailab le Social History Tobacco Use Types Packs/Day Years Used Date Smoking Tobacco: Never Assessed Sex and Gender Information Value Date Recorded Sex Assigned at Not on file Legal Sex Male 7:17 PM CDT Gender Identity Not on file Sexual Orientation Not on file Plan of Treatment Health Maintenance Due Date Last Done Comments Colorectal Cancer Screening Colonoscopy (10 Years) 1973 Annual Physical 01/14/1976 Hepatitis C 1991 DTaP, Tdap and Td Vaccines ( 1 - Tdap) 01/14/1992 Hepatitis B Vaccines (1 of 3 - 19+ 3-dose series) 01/14/1992 Pneumococcal Vaccine: 50+ Ye ars (1 of 1 - PCV) 2023 Zoster Vaccines (1 of 2) 2023 COVID-19 Vaccine (1 - 2023-2 5 season) 2023 Meningococcal B Vaccine Aged Out No l onger eligible based on patient's age to complete this topic Meningococcal Vaccine Aged Out No floyd radha eligible based on patient's age to complete this topic RSV Immunizations Under 20 Months Aged Out No longer eligible based on patient's age to complete this topic Care Teams Events Associate Relationship Specialty Start Date End Date Stew Matt MD PCP - General 11/20/10
[2024-10-28 18:19] LABS: Alanine Aminotransferase 30 U/L (6-50); Aspartate Amino Transferase 27 U/L (17-59)
== END 2024-10-28 13:54 | disposition home or self-care (01) ==
LOC: ANHLAB 13:55
PROVIDERS: PCP Internal Medicine; Visit Provider Podiatrist Foot & Ankle Surgery
DX: B35.1 Tinea unguium (principal)
CPT/HCPCS: 36415; 84450; 84460

== ENCOUNTER 2025-03-10 14:13 | Outpatient (CLI) | payer OTHER, SELFPAY ==
[2025-03-10 14:46] LABS: Alanine Aminotransferase 24 U/L (6-50); Aspartate Amino Transferase 40 U/L (17-59)
== END 2025-03-10 14:14 | disposition home or self-care (01) ==
LOC: ANHLAB 14:16
PROVIDERS: PCP Internal Medicine; Visit Provider Podiatrist Foot & Ankle Surgery
DX: B35.1 Tinea unguium (principal)
CPT/HCPCS: 36415; 84450; 84460